=== PATIENT | male | born 1955 | race Caucasian/White ===

== ENCOUNTER 2019-10-19 08:26 | Outpatient (CLI) | payer BC, SELFPAY ==
--- NOTE | ~2019-10-19 | CT_ITS ---
EXAMINATION: CT chest abdomen pelvis w con DATE: 10/19/2019 09:27 INDICATION: Duodenal adenocarcinoma TECHNIQUE: Transaxial computed tomographic images of the chest, abdomen, and pelvis were obtained aft er the administration of 100 cc of Omnipaque 350 intravenous contrast. The dose-length product (DLP) was 573.46 mGy-cm. Automated exposure control and iterative reconstruction technique were employed. COMPARISON: 08/08/2019 FINDINGS: CHEST CT: The lungs are free of acute opacities. There is no pleural effusion or pneumothorax. A right internal jugular Port-A-Cath ends with its tip in the distal superior vena cava. No pathologically enlarged t horacic lymph nodes are identified. The heart size is normal. There is mild thoracic spondylosis. ABDOMEN/PELVIS CT: The gallbladder is surgically absent. There is mild enlargement of the common bile duct and central i ntrahepatic ducts which is likely due to post cholecystectomy state. The liver, pancreas, and adrenal glands are normal. A percutaneous gastrostomy is again noted. The bulb is positioned in the distal b wagner the stomach and the distal tip has retracted and now coils in the stomach. There is unchanged wal l thickening involving the third portion of the duodenum. Punctate calcifications in an otherwise nor mal spleen likely represent healed granulomatous disease. The right kidney is unremarkable. Nonobstru cting stones measuring up to 8 mm are present in the left kidney. A retroaortic left renal vein is no kaity. IMPRESSION: 1. Stable circumferential thickening involving the third portion of the duodenum, likely representing the known adenocarcinoma. 2. Retraction of the tip of the percutaneous gastrostomy which now coils in the stomach. Reviewed, dictated and finalized at location B. IMPRESSION: 1. Stable circumferential thickening involving the third portion of the duodenu m, likely representing the known adenocarcinoma. 2. Retraction of the tip of the percutaneous gastrostomy which now coils in the stomach.
[2019-10-19 09:27] LABS: Estimated Glomerular Filt Rate > 60
== END 2019-10-19 08:27 | disposition home or self-care (01) ==
LOC: ANHIMG 08:31
PROVIDERS: PCP Internal Medicine; Visit Provider Internal Medicine Medical Oncology
DX: C17.0 Malignant neoplasm of duodenum (principal); Z93.1 Gastrostomy status
CPT/HCPCS: 36415; 71260; 74177; Q9967